=== PATIENT | female | born 1985 | race Two or more races ===

== ENCOUNTER → 2019-02-07 | Emergency (ER) | payer OTHER ==
[~2019-02-07] VITALS: Ht 162.6 cm; Wt 78.9 kg
[~2019-02-07] MED LIST: PERCOCET 5-3251 EACH PO; SYNTHROID50 MCG
== END | disposition home or self-care (01) ==
LOC: ER 09:50
DX: S01.122A Laceration with foreign body of left eyelid and periocular area, initial encounter (principal); W45.8XXA Other foreign body or object entering through skin, initial encounter; Y93.89 Activity, other specified; Y92.89 Other specified places as the place of occurrence of the external cause; Y99.8 Other external cause status